=== PATIENT | female | born 1940 | race Caucasian/White ===

== ENCOUNTER 2019-10-25 06:54 | Day surgery (SDC) | payer OTHER, SELFPAY ==
[~2019-10-25] VITALS: Ht 154.9 cm; Wt 85.3 kg
[2019-10-25] MEDS ORDERED: CEFAZOLIN SOD 1 GM in D5W 50 ML IV ONE (07:00)
[2019-10-25] MEDS ORDERED: DEXAMETHASONE SOD PHOSPHATE 4 MG/ML VIAL IVP ONE (09:41)
[2019-10-25] MEDS ORDERED: MIDAZOLAM HCL 5 MG/5 ML VIAL IVP ONE (09:41)
[2019-10-25] MEDS ORDERED: ONDANSETRON HCL 4 MG/2 ML VIAL IVP ONE (09:41)
[2019-10-25] MEDS ORDERED: ISOFLURANE 15 MIN GAS INH ONE (09:41)
[2019-10-25] MEDS ORDERED: PROPOFOL 200MG/ 20ML VIAL (DIPRIVAN) IV ONE (09:41)
[2019-10-25] MEDS ORDERED: SUGAMMADEX SODIUM 200 MG/2 ML VIAL IV ONE (09:41)
[2019-10-25] MEDS ORDERED: fentaNYL CITRATE/PF 100 MCG/2 ML AMP IVP ONE (09:41)
[2019-10-25] MEDS ORDERED: NS IRRIG SOLN 1000 ML IR ONE (09:41)
[2019-10-25] MEDS ORDERED: BUPIVACAINE /PF 0.25% 30 ML VIAL INJ ONE (09:41)
[2019-10-25] MEDS ORDERED: ROCURONIUM BROMIDE 10 MG/ML (ZEMURON) IV ONE (09:41)
[2019-10-25] MEDS ORDERED: LR 1,000 ML IV.SOLN IV ONE (09:41)
[2019-10-25] MEDS ORDERED: KETOROLAC TROMETHAMINE 30 MG VIAL IVP ONE (09:41)
[2019-10-25] MEDS ORDERED: MIDAZOLAM HCL 2 MG/2 ML VIAL (VERSED) IVP PRN (10:45)
[2019-10-25] MEDS ORDERED: METOCLOPRAMIDE HCL 10 MG/2 ML VIAL IVP PRN (10:45)
[2019-10-25] MEDS ORDERED: HYDROmorphone 1 MG INJ. 1 MG/ML AMPUL IVP PRN ×3 (10:45→12:00)
[2019-10-25] MEDS ORDERED: hydrALAZINE HCL 20 MG/ML VIAL IVP PRN (10:45)
[2019-10-25] MEDS ORDERED: LR 1,000 ML IV SCH (10:45)
[2019-10-25] MEDS ORDERED: LABETALOL 100 MG/ 20ML VIAL IVP PRN (10:45)
[2019-10-25] MEDS ORDERED: MEPERIDINE HCL/PF 25 MG/ML DISP.SYRIN IVP PRN (10:45)
[2019-10-25] MEDS ORDERED: ONDANSETRON HCL 4 MG/2 ML VIAL IVP PRN ×2 (10:45→12:00)
[2019-10-25] MEDS ORDERED: HYDROcodone/ACETAMIN 5-325 MG TAB (NORCO/ VICODIN) PO PRN ×2 (12:00)
[2019-10-25] MEDS ORDERED: ACETAMINOPHEN 325 MG TABLET PO PRN (12:00)
[2019-10-25] MEDS ORDERED: CEFAZOLIN 1 GM IVPB PREMIX 50 ML IV SCH (12:00)
[2019-10-25] MEDS ORDERED: HYDROmorphone 1 MG INJ. 1 MG/ML AMPUL ONE (12:59)
[2019-10-25] MEDS: D5/0.45 NS 1,000 ML IV SCH ×2 (13:10→21:50)
[2019-10-25 13:30] VITALS: BP_SYST 122
--- NOTE | 2019-10-25 13:30 | NUR ---
ADMISSION NOTE Received the patient from PACU, report given by Eneida at bedside. Patient no acute distress, on s/p right breast mastectomy. Surgical dressing intact, clean and dry, wrap with BRENTON dressing, no bleeding noted. JENNYFER drain x 2 intact to right breast area. Denied of pain at this time. AAO x 4. Skin warm and dry to touch. IV intact to LFA, no redness, no swelling, patent. On D5 1/2 NS at 100ml/hr, infusing well. Initial Plan of Care discussed-patient verbalized understanding. Oriented to room, call light, pain management and safety. Safety measure maintained. Call light within reached. Bed locked in low position, side rails up, bed alarm on. Will continue to monitor.
[2019-10-25] MEDS ORDERED: PRAV20TA PO (14:46)
[2019-10-25] MEDS ORDERED: NITSL SL (14:46)
[2019-10-25] MEDS ORDERED: LEVO25TA7 PO (14:46)
[2019-10-25] MEDS ORDERED: DICY10SO PO (14:46)
[2019-10-25] MEDS ORDERED: HYDR12.55 PO (14:46)
[2019-10-25] MEDS ORDERED: LOSA100T3 PO (14:46)
[2019-10-25] MEDS ORDERED: VITD400 PO (14:46)
[2019-10-25] MEDS ORDERED: NOR10 PO (14:46)
[2019-10-25] MEDS ORDERED: RIVA20TA PO (14:46)
[2019-10-25] MEDS ORDERED: ALEN10TA7 PO (14:46)
[2019-10-25] MEDS ORDERED: FLUT16SP16 NS (14:46)
--- NOTE | 2019-10-25 15:05 | NUR ---
CALLED: CALLED DR. BROWN'S OFFICE AND HOOK AND EYE MACHINE OPERATOR GAVE HIS CELL PHONE NUMBER. CALLED ON HIS CELL PHONE FOR ORDERS AND MEDICATIONS RECONCILIATION. MD DID NOT ANSWER. WILL KEEP ATTEMPTING TO CALL.
--- NOTE | 2019-10-25 15:20 | NUR ---
CALLED PHARMACY, SPOKE TO KENTON REGARDING THE ANCEF. PER PACU NURSE KATERINA ANCEF 2GM WAS GIVEN AT 1015. KENTON WILL FIX THE NEW SCHEDULE TIME.
--- NOTE | 2019-10-25 15:25 | NUR ---
ROUND Patient resting in the bed. No acute distress. Skin warm and dry to touch. IV intact, IVF infusing well. JENNYFER drain intact. Safety measure maintained. Call light within reached. Bed locked in low position, side rails up, bed alarm on. Continue to monitor.
[2019-10-25] MEDS ORDERED: ALENDRONATE SODIUM 10 MG TABLET (FOSAMAX) PO SCH (15:30)
[2019-10-25] MEDS ORDERED: DICYCLOMINE HCL 10 MG CAPSULE PO PRN (15:30)
[2019-10-25] MEDS ORDERED: NITROGLYCERIN 0.4 MG TAB.SUBL SL PRN (15:30)
[2019-10-25 16:00] VITALS: BP_SYST 107
--- NOTE | 2019-10-25 16:20 | NUR ---
INCENTIVE SPIROMETER Instructed and encouraged to use incentive spirometer. Able to demonstrate back with 700ml. NO acute distress. IV intact, IVF infusing well. Safety measure maintained. Call light within reached. Continue to monitor.
--- NOTE | 2019-10-25 17:35 | NUR ---
ROUND Patient talking to the family via her cellphone. No acute distress. Safety measure maintained. Call light within reached. Bed locked in low position, side rails up. Continue to monitor.
[2019-10-25] MEDS: CEFAZOLIN 1 GM IVPB PREMIX 50 ML IV SCH (18:26)
--- NOTE | 2019-10-25 18:52 | NUR ---
CLOSING NOTE Patient resting in the bed. No acute distress, on s/p right breast mastectomy. Surgical dressing intact, clean and dry, wrap with BRENTON dressing, no bleeding noted. JENNYFER drain x 2 intact to right breast area, red color drainage note. Skin warm and dry to touch. IV intact to LFA, no redness, no swelling, patent. On D5 1/2 NS at 100ml/hr, infusing well. SCD inplaced. All needs met. Safety measure maintained. Call light within reached. Bed locked in low position, side rails up, bed alarm on. Will endorse to night nurse.
[2019-10-25 20:00] VITALS: BP_SYST 97
--- NOTE | 2019-10-25 20:00 | NUR ---
Pt was received lying in bed fully awake, alert and oriented x4. No acute distress noted and no c/o pain or discomfort. Right chest dressing with julio c wrap bandage is dry and intact. 2 JENNYFER drains noted with small amount of blood drainage. Pt was instructed to use IS 10x Q 1hr while awake and pt verbalized understanding. Pt's IS usage is up to 1000ml. IVF of D5 1/2NS is infusing well in LFA at 100ml/hr without any signs of infiltration. Call light is with pt and bed alarm is on. Bed is in the lowest and locked positions.
--- NOTE | 2019-10-25 21:30 | NUR ---
Right chest dressing dry and intact. IVF i infusing well in LFA. Call light is with pt and bed alarm is on.
[2019-10-25] MEDS: FAMOTIDINE PF 20 MG/2 ML VIAL IVP SCH (21:55)
--- NOTE | 2019-10-25 23:30 | NUR ---
Pt is sleeping without any distress noted. IVF is infusing well in LFA. Call light is with pt and bed alarm is on.
[2019-10-26] VITALS: BP_SYST 103
--- NOTE | 2019-10-26 01:30 | NUR ---
Pt is sleeping comfortably in bed. IVF is infusing well in LFA. Call light is with pt and bed is in the lowest/locked positions.
[2019-10-26] MEDS: CEFAZOLIN 1 GM IVPB PREMIX 50 ML IV SCH (02:25)
--- NOTE | 2019-10-26 03:30 | NUR ---
Pt is sleeping without any distress noted. IVF is infusing well in LFA. Call light is with pt and bed alarm is on.
--- NOTE | 2019-10-26 05:00 | NUR ---
Pt continues to sleep comfortably in bed. IVF is infusing well in LFA. Fall and safety precautions are in place.
--- NOTE | 2019-10-26 06:00 | NUR ---
Pt instructed on how to empty and record JENNYFER drains. Pt verbalized understanding.
[2019-10-26] MEDS ORDERED: LEVOTHYROXINE SODIUM 0.025 MG TABLET PO SCH (07:00)
--- NOTE | 2019-10-26 07:15 | NUR ---
Report given to day shift nurse.
--- NOTE | 2019-10-26 07:18 | NUR ---
Nutrition Update Erwin Scale 17 noted. Pt admitted for Malignant Neoplasm of Unspecified Site Diet: Regular BMI: 35.5 kg/m2 RD to follow per nutrition care standards.
--- NOTE | 2019-10-26 07:22 | NUR ---
OPENING NOTE Patient resting in the bed. No acute distress, on s/p right breast mastectomy. Surgical dressing intact, clean and dry, wrap with BRENTON dressing, no bleeding noted. JENNYFER drain x 2 intact to right breast area, red color drainage note. Skin warm and dry to touch. IV intact to LFA, no redness, no swelling, patent. On D5 1/2 NS at 100ml/hr, infusing well. Discussed the safety issue, use call light when needs help, and plan of care, verbally understanding. SCD inplaced. Safety measure maintained. Call light within reached. Bed locked in low position, side rails up, bed alarm on. Will continue to monitor.
--- NOTE | 2019-10-26 07:40 | NUR ---
RECEIVED THE CALL FROM PAT MCKEON TO UPDATE THE PATIENT'S CONDITION. PER DR. BROWN WILL COME IN THE MORNING AND GIVE THE ORDER OF DISCHARGE PATIENT.
[2019-10-26 07:45] VITALS: BP_SYST 121
[2019-10-26] MEDS ORDERED: HYDROCHLOROTHIAZIDE 12.5 MG CAPSULE (HCTZ) PO SCH (09:00)
[2019-10-26] MEDS ORDERED: amLODIPine BESYLATE 10 MG TABLET PO SCH (09:00)
[2019-10-26] MEDS ORDERED: LOSARTAN POTASSIUM 50 MG TABLET (COZAAR) PO SCH (09:00)
[2019-10-26] MEDS ORDERED: ATORVASTATIN 10 MG TABLET PO SCH (09:00)
[2019-10-26] MEDS ORDERED: FLUTICASONE PROPIONATE 50 mCg/SPRAY 16 GM NS SCH (09:00)
--- NOTE | 2019-10-26 09:15 | NUR ---
SEEN AND EXAMINED BY PAT MCKEON WITH DISCHARGE ORDER RECEIVED.
[2019-10-26] MEDS: FAMOTIDINE PF 20 MG/2 ML VIAL IVP SCH (10:15)
--- NOTE | 2019-10-26 11:05 | NUR ---
INCENTIVE SPIROMETER Instructed and encouraged the patient to use incentive spirometer, the goal is 10 times per hour, verbally understanding. Patient demonstrated back with 1000ml. safety measure maintained. Call light within reached. Bed locked in low position, side rails up, bed alarm on. Continue to monitor.
[2019-10-26 11:34] VITALS: BP_SYST 106
--- NOTE | 2019-10-26 12:25 | NUR ---
EDUCATION ON JENNYFER DRAIN Instructed the patient how to empty JENNYFER drain. Patient demonstrated back how to drain. Educated the patient to record the JENNYFER A and B separate to write down the time and date that drainage amount and bring the record to Dr. Rios on , verbally understanding. Also educated patient drain 3-4 times a day and do not let the drainage ball full, verbally understanding.
[2019-10-26 12:49] VITALS: BP_SYST 110
== END 2019-10-26 12:55 | disposition home or self-care (01) ==
LOC: SDS 06:54 → SMU 06:55 → EDSTATUS 08:45 → SMU 13:46 → STU 13:57 → SDS 10-26 12:55
PROVIDERS: ATTEND Colon & Rectal Surgery
DX: C50.911 Malignant neoplasm of unspecified site of right female breast (principal); E66.01 Morbid (severe) obesity due to excess calories; I10 Essential (primary) hypertension; I48.91 Unspecified atrial fibrillation; Z95.0 Presence of cardiac pacemaker; I12.9 Hypertensive chronic kidney disease with stage 1 through stage 4 chronic kidney disease, or unspecified chronic kidney disease; N18.3 Chronic kidney disease, stage 3 (moderate); E78.5 Hyperlipidemia, unspecified; Z20.828 Contact with and (suspected) exposure to other viral communicable diseases
CPT/HCPCS: 19307; 38525; 38900; 78195; 87081; 88305; 88307; A9541; C9399; J0690 ×2; J1100; J1170; J1885; J2250; J2405; J2704; J3010; J3490 ×3; J7060; J7120; U0003

== ENCOUNTER 2021-07-05 21:27 | Emergency (ER) | payer OTHER ==
[~2021-07-05] VITALS: Ht 154.9 cm; Wt 83.5 kg
[2021-07-05 21:27] VITALS: BP_SYST 179
[~2021-07-05 21:27] MED LIST: ALEN10TA25 PO; CEPH-568 PO; DICY10SO PO; FLUT16SP16 NS; LEVO25TA7 PO; NITSL SL; PRAV20TA PO; RIVA20TA PO; VITD400 PO
[2021-07-05] MEDS ORDERED: PHENAZOPYRIDINE HCL 100 MG TABLET PO ONE (22:30)
[2021-07-05 23:02] LABS: BILIRUBIN,URINE 2+ (NEGATIVE); BLOOD, URINE 3+ (NEGATIVE); GLUCOSE,URINE TRACE (NEGATIVE); KETONES,URINE TRACE (NEGATIVE); LEUKOCYTE ESTERASE ,URINE 3+ (NEGATIVE); NITRITE, URINE POSITIVE (NEGATIVE); PROTEIN URINE 3+ (NEGATIVE)
[2021-07-05 23:05] LABS: CLARITY/URINE TURBID (CLEAR); COLOR,URINE RED (YELLOW)
[2021-07-05 23:09] LABS: BASOPHILS # (AUTO) 0.1 K/uL (0.0-0.2); BASOPHILS % (AUTO) 0.8 % (0.0-2.0); EOSINOPHILS # (AUTO) 0.1 K/uL (0.0-0.4); HEMATOCRIT 42.1 % (36-48); HEMOGLOBIN 13.7 g/dL (12.0-16.0); LYMPHOCYTES # (AUTO) 1.4 K/uL (1.0-5.5); LYMPHOCYTES % (AUTO) 13.5 % (20.5-51.5); MEAN CORPUSCULAR HEMOGLOBIN 28 pg (27-31); MEAN CORPUSCULAR HGB CONC 33 % (32-36); MEAN CORPUSCULAR VOLUME 85 fL (79.0-98.0); MONOCYTES # (AUTO) 0.6 K/uL (0.0-1.0); MONOCYTES % (AUTO) 5.7 % (1.7-9.3); NEUTROPHILS # (AUTO) 8.3 K/uL (1.8-7.7); PLATELET COUNT (AUTO) 255 K/uL (130-430); RED BLOOD CELL COUNT(AUTO) 4.94 MIL/uL (4.2-6.2); RED CELL DISTRIBUTION WIDTH 14.9 % (9.0-15.0); WHITE BLOOD COUNT (AUTO) 10.5 K/uL (4.8-10.8)
[2021-07-05 23:25] LABS: ANION GAP 9 (5-15); CALCIUM 9.4 mg/dL (8.4-11.0); CHLORIDE 105 mmol/L (98-107); CREATININE 1.15 mg/dL (0.55-1.30); GLUCOSE 136 mg/dL (70-99); POTASSIUM 4.2 mmol/L (3.5-5.1); SODIUM SERUM 142 mmol/L (136-145); UREA NITROGEN, BLOOD 24 mg/dL (8-21)
[2021-07-05] MEDS ORDERED: PHEN-726 PO (23:42)
[2021-07-05] MEDS ORDERED: CIPR500T5 PO (23:42)
[2021-07-05] MEDS ORDERED: CIPROFLOXACIN HCL 500 MG TABLET PO ONE (23:45)
[2021-07-05 23:46] LABS: BACTERIA,URINE MANY /HPF (None Seen); RBC,URINE >100 /HPF (0-3)
[2021-07-05 23:53] VITALS: BP_SYST 132
== END 2021-07-05 22:30 | disposition home or self-care (01) ==
LOC: SED 21:27
DX: N39.0 Urinary tract infection, site not specified (principal); Z88.6 Allergy status to analgesic agent
CPT/HCPCS: 36415; 80048; 81000; 83605; 85025; 87086; 99283

== ENCOUNTER 2022-09-09 12:49 | Emergency (ER) | payer OTHER ==
[~2022-09-09] VITALS: Ht 162.6 cm; Wt 88.0 kg
[~2022-09-09 12:49] MED LIST changes: +CIPR500T5 PO; +PHEN-726 PO
[2022-09-09 13:16] VITALS: BP_SYST 100; PULSE 85; RESP 18; TEMP 98.3; O2SAT 98
--- NOTE | 2022-09-09 13:58 | NUR ---
Pt brought by self, A&Ox4, pt presents to ER with R lower leg redness and discharge, pt sent to r/o DVT, skin pink and warm, cap refill <3, VSS
--- NOTE | 2022-09-09 14:12 | NUR ---
DR MANZO OUT TO TRIAGE ROOM FOR EVALUATION
[2022-09-09] MEDS ORDERED: BACI15OI13 TP (15:41)
[2022-09-09 15:45] VITALS: BP_SYST 100; PULSE 85; RESP 18; TEMP 98.3; O2SAT 98
--- NOTE | 2022-09-09 15:45 | NUR ---
Patient given written and verbal discharge instructions and verbalizes understanding. ER MD discussed with patient the results and treatment provided. Patient in stable condition. ID arm band removed. Rx of bacitracin given. Patient educated on pain management and to follow up with PMD. Opportunity for questions provided and answered. Medication side effect fact sheet provided.
== END 2022-09-09 15:45 | disposition home or self-care (01) ==
LOC: SED 12:49
DX: S80.861A Insect bite (nonvenomous), right lower leg, initial encounter (principal); L03.115 Cellulitis of right lower limb; Z88.6 Allergy status to analgesic agent; Z85.3 Personal history of malignant neoplasm of breast; Z79.899 Other long term (current) drug therapy; W57.XXXA Bitten or stung by nonvenomous insect and other nonvenomous arthropods, initial encounter; Y93.89 Activity, other specified; Y92.89 Other specified places as the place of occurrence of the external cause; Y99.8 Other external cause status
CPT/HCPCS: 93971; 99284